=== PATIENT | female | born 2000 | race Caucasian/White ===

== ENCOUNTER 2022-04-09 08:59 | Emergency (ER) | payer OTHER, SELFPAY ==
[2022-04-09 09:08] VITALS: BP 142/80; PULSE 96; RESP 20; TEMP 37; O2SAT 98
--- NOTE | 2022-04-09 09:22 | ED.URI ---
HPI - URI/Sore Throat General Chief Complaint: Upper Respiratory Infection Stated Complaint: sore throat, stuffy nose, congestion Time Seen by Provider: 04/09/22 09:30 Source: patient and RN notes reviewed Mode of arrival: ambulatory Limitations: no limitations History of Present Illness HPI Narrative: 21-year-old female presents with concern for sore throat that started 5 days ago. She reports 2 days ago she began having a cough and nasal drainage. She reports intermittent headache, intermittent nausea without vomiting. She reports chills and sweats. She reports she has been taking DayQuil and NyQuil with some relief of symptoms. MD elicited complaint: cough, sore throat and nasal congestion Related Data Home Medications Medication Instructions Recorded Confirmed norethindrone 1 mg-ethinyl 1 tablet PO DAILY 04/09/22 04/09/22 estradiol 20 mcg (21)-iron 75 mg (7) tablet (07/12 (28)) Allergies Allergy/AdvReac Type Severity Reaction Status Date / Time No Known Allergies Allergy Verified 04/09/22 09:18 Review of Systems Review of Systems: CONSTITUTIONAL: Report malaise, chills, sweats EYES: Denies visual changes, redness, or discharge. ENT: Reports rhinorrhea, congestion, and sore throat. Denies sinus pain, otalgia CARDIOVASCULAR: Denies chest pain, palpitations, or edema. RESPIRATORY: Reports cough. Denies dyspnea. GASTROINTESTINAL: Denies abdominal pain, nausea, vomiting, diarrhea SKIN: Denies rash or itching. MUSCULOSKELETAL: Reports myalgia. NEUROLOGIC: Reports headache. All systems reviewed & are unremarkable except as noted in HPI and below [facility] Comments At time of signature, agree with nursing past medical, surgical, social and family history. There is no relevant family history pertinent to the presenting complaint Exam Narrative: GENERAL: Nontoxic. And in no acute distress. HEAD: Normocephalic EYES: PERRLA, conjunctivae clear ENT: Nares clear, turbinates edematous and erythematous, clear discharge. Mucous membranes moist. TM pearly mayer with dull light reflex bilaterally; no tragal tenderness. Oropharynx erythematous without lesions. Tonsils enlarged and without exudate, no drooling, no hoarseness, no trismus, uvula midline. NECK: Supple. No lymphadenopathy CHEST: Clear to auscultation, breath sounds equal. No wheezing, rhonchi, rales, or stridor. No respiratory distress, speaks in full sentences. HEART: Regular rate and rhythm. No murmur heard. SKIN: Warm, dry, no rash. NEURO: Alert and oriented x3. PSYCH: Normal mood and affect Course Course Emergency Course: Patient is aware of diagnosis, understands and agrees to treatment plan. Anticipatory guidance given. Patient agrees to follow-up as directed and is aware of reasons to seek care at the emergency department. Portions of this record may have been created with voice recognition software Level of Care: Express Care Visit Vital Signs Vital signs: Vital Signs Temperature 98.6 F 04/09/22 09:08 Pulse Rate 96 04/09/22 09:08 Respiratory Rate 20 04/09/22 09:08 Blood Pressure 142/80 H 04/09/22 09:08 Pulse Oximetry 98 04/09/22 09:08 Oxygen Delivery Room Air 04/09/22 09:08 Temperature 98.6 F 04/09/22 09:08 Pulse Rate 96 04/09/22 09:08 Respiratory Rate 20 04/09/22 09:08 Blood Pressure 142/80 H 04/09/22 09:08 Pulse Oximetry 98 04/09/22 09:08 Oxygen Delivery Room Air 04/09/22 09:08 Reviewed. MDM - URI/Sore Throat MDM Narrative Medical decision making narrative: Differential diagnosis considered: Steinberg virus, strep pharyngitis, allergic rhinitis, upper respiratory tract infection, sinusitis, rhinosinusitis, nasopharyngitis. viral pharyngitis, otitis media, otitis externa, pneumonia, bronchitis, viral cough syndrome, viral syndrome, and influenza. Exam findings show no acute concerns or changes; patient is non-toxic appearing and is in no distress. Patient is appropriate for outpatient treatm
== END 2022-04-09 09:51 | disposition home or self-care (01) ==
PROVIDERS: Emergency Provider Nurse Practitioner
DX: J06.9 Acute upper respiratory infection, unspecified (principal)
CPT/HCPCS: 87081; 87880; 99203; G0463

== ENCOUNTER 2022-07-17 12:06 | Emergency (ER) | payer OTHER, SELFPAY ==
[2022-07-17 12:11] VITALS: BP 143/79; PULSE 74; RESP 14; TEMP 37.4; O2SAT 99
--- NOTE | 2022-07-17 12:27 | ED.URI ---
HPI - URI/Sore Throat General Chief Complaint: Upper Respiratory Infection Stated Complaint: Ear Pain/Congestion Time Seen by Provider: 07/17/22 12:27 Source: patient and RN notes reviewed History of Present Illness HPI Narrative: Patient is a 21-year-old female who presents to urgent care with complaints of right ear pain, headache, sore throat and cough. Patient states it started 2 days ago. Denies any fever, nausea or vomiting. States that she has been on DayQuil and NyQuil. States she did have a bad infection few months under treated?. No other acute complaints. No acute distress noted. Patient aware of the plan of care. Some parts of this dictation were generated by voice recognition software and may contain typographical and/or grammatical inaccuracies. Related Data Home Medications Medication Instructions Recorded Confirmed norethindrone 1 mg-ethinyl 1 tablet PO DAILY 04/09/22 07/17/22 estradiol 20 mcg (21)-iron 75 mg (7) tablet (07/12 (28)) Allergies Allergy/AdvReac Type Severity Reaction Status Date / Time No Known Allergies Allergy Verified 04/09/22 09:18 Review of Systems Review of Systems: CONSTITUTIONAL: Denies fever, chills, or sweats. EYES: Denies visual changes, redness, or discharge. ENT: Reports rhinorrhea, sinus congestion, postnasal drainage and right otalgia CARDIOVASCULAR: Denies chest pain, palpitations, or edema. RESPIRATORY: Denies cough or dyspnea. GASTROINTESTINAL: Denies abdominal pain, nausea, vomiting, or diarrhea. GENITOURINARY: Denies dysuria or hematuria. SKIN: Denies rash or itching. MUSCULOSKELETAL: Denies back pain, joint pain, or myalgia. NEUROLOGIC: Reports of headache All other systems reviewed are negative, except as documented in HPI. [facility] Comments At the time of my signature, I reviewed and agree with the nursing past medical, surgical, social, and family history. There is no relevant family history pertinent to the patient complaint. Exam Narrative: GENERAL: This is a well-nourished, well-developed patient, in no apparent distress. HEAD: normocephalic, atraumatic. EYES: PERRL. Sclera clear/white. Vision is grossly intact. EARS: External ears normal, auditory canals clear and without drainage, TMs normal without perforation. Hearing grossly intact. NOSE: External nose normal with no obvious nasal discharge, nares without redness, clear rhinorrhea. THROAT: Mucous membranes moist, posterior pharynx clear. Moderate postnasal drainage with slightly less. NECK: Neck supple, non-tender without lymphadenopathy, masses or thyromegaly. CARDIOVASCULAR: Regular rate and rhythm without murmurs, gallops, or rubs. RESPIRATORY: Mild nonproductive cough deep breathing. Clear to auscultation. Breath sounds equal bilaterally. No wheezes, rales, or rhonchi. SKIN: warm, intact with no suspicious lesions or rash, good texture and turgor. NEURO: awake, alert, and oriented to person, place and time. There were no obvious focal neurologic abnormalities. EXTREMITIES: No clubbing, cyanosis, or edema. Course Course Level of Care: Express Care Visit Vital Signs Vital signs: Vital Signs Temperature 99.4 F 07/17/22 12:11 Pulse Rate 74 07/17/22 12:11 Respiratory Rate 14 07/17/22 12:11 Blood Pressure 143/79 H 07/17/22 12:11 Pulse Oximetry 99 07/17/22 12:11 Oxygen Delivery Room Air 07/17/22 12:11 Temperature 99.4 F 07/17/22 12:11 Pulse Rate 74 07/17/22 12:11 Respiratory Rate 14 07/17/22 12:11 Blood Pressure 143/79 H 07/17/22 12:11 Pulse Oximetry 99 07/17/22 12:11 Oxygen Delivery Room Air 07/17/22 12:11 Reviewed- Patient is informed that they may have pre-hypertension or hypertension based on a blood pressure reading in the department. I recommend the patient call the primary care provider listed on their discharge instructions or a physician of their choice this week to arrange follow-up for further evaluation of possible pre-hyperte
== END 2022-07-17 13:17 | disposition home or self-care (01) ==
PROVIDERS: Emergency Provider Nurse Practitioner Family; PCP Family Medicine
DX: J06.9 Acute upper respiratory infection, unspecified (principal)
CPT/HCPCS: 99213; G0463

== ENCOUNTER 2022-09-05 16:29 | Emergency (ER) | payer OTHER, SELFPAY ==
[2022-09-05 16:34] VITALS: BP 158/79; PULSE 114; RESP 20; TEMP 37.2; O2SAT 95
--- NOTE | 2022-09-05 16:58 | ED.NAVMDI ---
HPI - Nausea/Vomiting/Diarrhea General Chief complaint: Nausea/Vomiting/Diarrhea Stated complaint: nausea and abdo pain Source: patient and RN notes reviewed History of Present Illness HPI Narrative: 21-year-old female presents to urgent care with complaints of vomiting, diarrhea, intermittent abdominal pain, and lightheadedness since this morning. Patient denies any sore throat, headache, or ear pain. She denies any syncope or falls. Some parts of this dictation were generated by voice recognition software and may contain typographical and/or grammatical inaccuracies. Related Data Home Medications Medication Instructions Recorded Confirmed norethindrone 1 mg-ethinyl tablet 09/05/22 estradiol 20 mcg (21)-iron 75 mg (7) tablet (07/12 (28)) Allergies Allergy/AdvReac Type Severity Reaction Status Date / Time No Known Allergies Allergy Verified 09/05/22 16:36 Review of Systems Review of Systems: CONSTITUTIONAL: Denies fever, chills, or sweats. EYES: Denies visual changes, redness, or discharge. ENT: Denies otalgia and sore throat CARDIOVASCULAR: Denies chest pain, palpitations, or edema. RESPIRATORY: Denies cough or dyspnea. GASTROINTESTINAL: reports abdominal pain, nausea, vomiting, and diarrhea. GENITOURINARY: Denies dysuria or hematuria. SKIN: Denies rash or itching. MUSCULOSKELETAL: Denies back pain, joint pain, or myalgia. NEUROLOGIC: Denies headache, numbness, or weakness. [facility] Comments At the time of my signature, I reviewed and agree with the nursing past medical, surgical, social, and family history. There is no relevant family history pertinent to the patient complaint. Exam Narrative: GENERAL: This is a well-nourished, well-developed patient, in no apparent distress. HEAD: normocephalic, atraumatic. EYES: PERRL. Sclera clear/white. Vision is grossly intact. EARS: External ears normal, auditory canals clear and without drainage, TMs normal without perforation. Hearing grossly intact. NOSE: External nose normal with no obvious nasal discharge, nares without redness, no rhinorrhea. THROAT: Mucous membranes moist, posterior pharynx clear. NECK: Neck supple, non-tender without lymphadenopathy, masses or thyromegaly. CARDIOVASCULAR: Regular rate and rhythm without murmurs, gallops, or rubs. RESPIRATORY: Clear to auscultation. Breath sounds equal bilaterally. No wheezes, rales, or rhonchi. GASTROINTESTINAL: Abdomen soft, non-tender, nondistended. Bowel sounds are active. No hepato-splenomegaly, or palpable masses. No guarding. SKIN: warm, intact with no suspicious lesions or rash, good texture and turgor. NEURO: awake, alert, and oriented to person, place and time. There were no obvious focal neurologic abnormalities. Course Course Level of Care: Express Care Visit Vital Signs Vital signs: Vital Signs Temperature 98.9 F 09/05/22 16:34 Pulse Rate 114 H 09/05/22 16:34 Respiratory Rate 20 09/05/22 16:34 Blood Pressure 158/79 H 09/05/22 16:34 Pulse Oximetry 95 09/05/22 16:34 Oxygen Delivery Room Air 09/05/22 16:34 Temperature 98.9 F 09/05/22 16:34 Pulse Rate 114 H 09/05/22 16:34 Respiratory Rate 20 09/05/22 16:34 Blood Pressure 158/79 H 09/05/22 16:34 Pulse Oximetry 95 09/05/22 16:34 Oxygen Delivery Room Air 09/05/22 16:34 Reviewed MDM - Nausea/Vomiting/Diarrhea MDM Narrative Medical decision making narrative: You've been diagnosed with a viral illness that would not require antibiotics at this time. Take the Zofran ODT at home as directed for nausea and get plenty of fluids. You may take Imodium for diarrhea and the Bentyl for abdominal cramping. If you would like to eat food, you should follow the BRAT diet (bananas, rice, applesauce, and toast, or things of the like). If you develop any new or worsening symptoms, you should go to the emergency dept without hesitation. Follow up with your wood bucker in 2-5 days. Differential Diagnosis Dif
== END 2022-09-05 17:10 | disposition home or self-care (01) ==
PROVIDERS: Emergency Provider Nurse Practitioner Family; PCP Emergency Medicine
DX: K52.9 Noninfective gastroenteritis and colitis, unspecified (principal)
CPT/HCPCS: 99213; G0463